=== PATIENT | male | born 1990 | race Caucasian/White ===

== ENCOUNTER 2020-10-29 18:51 | Emergency (ER) | payer OTHER ==
[~2020-10-29] VITALS: Ht 190.5 cm; Wt 79.4 kg
[2020-10-29] MEDS ORDERED: CYCLOBENZAPRINE10 MG PO (19:08)
[2020-10-29] MEDS ORDERED: GABAPENTIN600 MG PO (19:08)
--- OUTSIDE RECORDS SUMMARY | 2020-10-29 19:54 | XMS ---
PreManage Notification: AMA CISNEROS Security Experienced [employer] Events No recent Security Events currently on file [facility] There are no care providers on record at this time. Marcela has no Care Guidelines for this patient. Romelia VISIT COUNT (12 MO.) 1 AGNIESZKA Mckeon TOTAL 1 NOTE: Visits indicate total known visits. ED/C VISIT TRACKING (12 MO.) 10/29/2020 18:52 AGNIESZKA Feldman OR TYPE: Emergency COMPLAINT: - FELL OFF ROOF, INJURED FEET INPATIENT VISIT TRACKING (12 MO.) No inpatient visits to display in this time frame [email or web address]
== END 2020-10-29 19:51 | disposition home or self-care (01) ==
LOC: ED 18:51
DX: S90.32XA Contusion of left foot, initial encounter (principal); S90.31XA Contusion of right foot, initial encounter; X58.XXXA Exposure to other specified factors, initial encounter; F17.200 Nicotine dependence, unspecified, uncomplicated; Z79.899 Other long term (current) drug therapy
CPT/HCPCS: 73630; 73650; 99283-25